=== PATIENT | female | born 1945 | race African-American/Black ===

== ENCOUNTER 2017-06-14 19:55 | Inpatient (IN) | payer MEDICARE, BC, MEDICAID ==
[~2017-06-14] VITALS: Ht 160 cm; Wt 61.7 kg
[2017-06-14] MEDS ORDERED: NON FORMULARY PATIENT HOME MED EA XX SCH (21:45)
[2017-06-14] MEDS ORDERED: SODIUM CHLORIDE 0.9% 1,000 ML IV SCH (21:45)
[2017-06-14] MEDS ORDERED: MORPHINE SULFATE 2 MG/ML CPJ (NOT FOR IM USE) IV PRN (21:45)
[2017-06-14] MEDS ORDERED: GUAIFENESIN/CODEINE 200-20MG/10ML UDC PO PRN (21:45)
[2017-06-14] MEDS ORDERED: TEMAZEPAM 15MG CAPSULE PO PRN (21:45)
[2017-06-14] MEDS ORDERED: ACETAMINOPHEN 650MG/20.3ML UDC PO PRN (21:45)
[2017-06-14] MEDS ORDERED: IPRATROPIUM/ALBUTEROL 0.5-3(2.5)MG/3ML NEB HHN PRN (21:45)
[2017-06-14] MEDS: IPRATROPIUM/ALBUTEROL 0.5-3(2.5)MG/3ML NEB HHN SCH (23:23)
[2017-06-15] MEDS ORDERED: METHYLPREDNISOLONE SOD SUCC 40 MG/ML VIAL IV SCH
[2017-06-15] MEDS: METHYLPREDNISOLONE SOD SUCC 40 MG/ML VIAL IV SCH ×2 (00:20→08:09)
[2017-06-15] MEDS: HYDROCODONE/ACETAMINOPHEN 10/325MG TABLET PO PRN ×5 (00:21→20:41)
[2017-06-15] MEDS ORDERED: RIVA10TA PO (00:49)
[2017-06-15] MEDS ORDERED: DULO30CA51 PO (00:50)
[2017-06-15] MEDS ORDERED: METF500T4 PO (00:53)
[2017-06-15] MEDS ORDERED: LORA1TAB PO (00:54)
[2017-06-15] MEDS ORDERED: ALPR-392 PO (00:55)
[2017-06-15] MEDS ORDERED: IPRA0.2S51 IH (00:56)
[2017-06-15] MEDS ORDERED: FLUT16SP15 BOTHNSTRLS (00:57)
[2017-06-15] MEDS ORDERED: LORA10TA7 PO (00:58)
[2017-06-15] MEDS ORDERED: METO1TAB26 PO ×2 (01:00→01:02)
[2017-06-15] MEDS ORDERED: MIRT15TA6 PO (01:03)
[2017-06-15] MEDS ORDERED: HYDR-519 PO (01:04)
[2017-06-15] MEDS ORDERED: ERGO400C PO (01:06)
[2017-06-15] MEDS: IPRATROPIUM/ALBUTEROL 0.5-3(2.5)MG/3ML NEB HHN SCH ×5 (03:55→20:56)
[2017-06-15 07:03] LABS: HEMATOCRIT 33.3 % (36.0-48.0); HEMOGLOBIN 10.8 g/dL (12.0-16.0); MEAN CORPUSCULAR HEMOGLOBIN 25.8 pg (28.0-32.0); MEAN CORPUSCULAR VOLUME 79.1 fL (81.0-99.0); PLATELET 240 x1000/uL (130-400); RED BLOOD CELL COUNT 4.21 mill/uL (4.2-5.4); RED CELL DISTRIBUTION WIDTH 15.2 % (11.6-14.6)
[2017-06-15 07:31] LABS: CARBON DIOXIDE 33 mEq/L (21-32); CHLORIDE 98 mEq/L (98-107)
[2017-06-15] MEDS: DOCUSATE SODIUM 100MG CAPSULE PO SCH ×2 (08:08→20:46)
[2017-06-15] MEDS: CITALOPRAM HYDROBROMIDE 10MG TABLET PO SCH (08:09)
[2017-06-15] MEDS ORDERED: DEXT 5%/0.9% NACL 1,000 ML IV SCH (09:00)
[2017-06-15] MEDS: BUDESONIDE 0.5MG/2ML NEB HHN SCH ×2 (09:05→20:54)
[2017-06-15] MEDS: ENOXAPARIN 40MG/0.4ML SYR SUBCUT SCH (09:43)
[2017-06-15 12:10] LABS: KETONES URINE NEGATIVE (NEGATIVE); LEUKOCYTE ESTERASE URINE NEGATIVE (NEGATIVE); NITRITE URINE NEGATIVE (NEGATIVE); OCCULT BLOOD URINE NEGATIVE (NEGATIVE); PH URINE 7.5 (4.5-8.0); PROTEIN URINE NEGATIVE (NEGATIVE)
[2017-06-15 12:11] LABS: CLARITY URINE CLEAR (CLEAR); COLOR URINE YELLOW (YELLOW)
[2017-06-15] MEDS ORDERED: DEXTROSE 50% WATER 50ML SYRINGE IV PRN (15:00)
[2017-06-15] MEDS: BLOOD SUGAR DIAGNOSTIC STRIP TEST SCH ×2 (16:34→21:06)
[2017-06-15] MEDS: INSULIN LISPRO 100 UNITS/ML SUBCUT SCH ×2 (16:35→21:00)
[2017-06-16] MEDS: IPRATROPIUM/ALBUTEROL 0.5-3(2.5)MG/3ML NEB HHN SCH ×6 (01:08→20:42)
[2017-06-16] MEDS: HYDROCODONE/ACETAMINOPHEN 10/325MG TABLET PO PRN ×4 (01:24→21:36)
[2017-06-16] MEDS: BLOOD SUGAR DIAGNOSTIC STRIP TEST SCH ×4 (06:14→20:53)
[2017-06-16] MEDS: INSULIN LISPRO 100 UNITS/ML SUBCUT SCH ×4 (07:01→21:02)
[2017-06-16] MEDS: DOCUSATE SODIUM 100MG CAPSULE PO SCH ×3 (08:34→21:01)
[2017-06-16] MEDS: ENOXAPARIN 40MG/0.4ML SYR SUBCUT SCH (08:35)
[2017-06-16] MEDS: CITALOPRAM HYDROBROMIDE 10MG TABLET PO SCH (08:35)
[2017-06-16] MEDS: PREDNISONE 20MG TABLET PO SCH (08:35)
[2017-06-16] MEDS: BUDESONIDE 0.5MG/2ML NEB HHN SCH ×2 (09:20→20:42)
[2017-06-16] MEDS: LIDOCAINE 5% PATCH TOP SCH (14:35)
[2017-06-17] MEDS: IPRATROPIUM/ALBUTEROL 0.5-3(2.5)MG/3ML NEB HHN SCH ×6 (00:45→20:26)
[2017-06-17] MEDS: HYDROCODONE/ACETAMINOPHEN 10/325MG TABLET PO PRN ×4 (04:28→20:21)
[2017-06-17] MEDS: BLOOD SUGAR DIAGNOSTIC STRIP TEST SCH ×4 (06:00→20:18)
[2017-06-17] MEDS: INSULIN LISPRO 100 UNITS/ML SUBCUT SCH ×4 (06:03→21:57)
[2017-06-17] MEDS: BUDESONIDE 0.5MG/2ML NEB HHN SCH ×2 (07:55→20:26)
[2017-06-17] MEDS: LIDOCAINE 5% PATCH TOP SCH (09:00)
[2017-06-17] MEDS: PREDNISONE 20MG TABLET PO SCH (09:34)
[2017-06-17] MEDS: DOCUSATE SODIUM 100MG CAPSULE PO SCH ×2 (09:34→20:20)
[2017-06-17] MEDS: ENOXAPARIN 40MG/0.4ML SYR SUBCUT SCH (09:36)
[2017-06-17] MEDS: CITALOPRAM HYDROBROMIDE 10MG TABLET PO SCH (09:36)
[2017-06-17] MEDS: METFORMIN HCL 500MG SR TABLET 24HR PO SCH (17:00)
[2017-06-18] MEDS: IPRATROPIUM/ALBUTEROL 0.5-3(2.5)MG/3ML NEB HHN SCH ×6 (00:14→21:21)
[2017-06-18] MEDS: LORAZEPAM 0.5MG TABLET PO PRN ×2 (00:28→20:47)
[2017-06-18] MEDS: BLOOD SUGAR DIAGNOSTIC STRIP TEST SCH ×4 (05:48→20:52)
[2017-06-18] MEDS: HYDROCODONE/ACETAMINOPHEN 10/325MG TABLET PO PRN ×3 (05:55→18:02)
[2017-06-18] MEDS: INSULIN LISPRO 100 UNITS/ML SUBCUT SCH ×4 (05:55→21:00)
[2017-06-18] MEDS: DOCUSATE SODIUM 100MG CAPSULE PO SCH ×2 (08:02→21:00)
[2017-06-18] MEDS: CITALOPRAM HYDROBROMIDE 10MG TABLET PO SCH (08:02)
[2017-06-18] MEDS: PREDNISONE 20MG TABLET PO SCH (08:03)
[2017-06-18] MEDS: ENOXAPARIN 40MG/0.4ML SYR SUBCUT SCH (08:04)
[2017-06-18] MEDS: LIDOCAINE 5% PATCH TOP SCH (08:04)
[2017-06-18] MEDS: BUDESONIDE 0.5MG/2ML NEB HHN SCH (09:13)
[2017-06-18] MEDS: METFORMIN HCL 500MG SR TABLET 24HR PO SCH ×2 (17:00→17:24)
[2017-06-19] MEDS: IPRATROPIUM/ALBUTEROL 0.5-3(2.5)MG/3ML NEB HHN SCH ×6 (01:04→20:36)
[2017-06-19] MEDS: HYDROCODONE/ACETAMINOPHEN 10/325MG TABLET PO PRN ×3 (05:47→20:22)
[2017-06-19] MEDS: BLOOD SUGAR DIAGNOSTIC STRIP TEST SCH ×4 (05:49→20:46)
[2017-06-19] MEDS: INSULIN LISPRO 100 UNITS/ML SUBCUT SCH ×4 (06:25→20:45)
[2017-06-19 07:32] LABS: HEMATOCRIT 29.3 % (36.0-48.0); HEMOGLOBIN 9.5 g/dL (12.0-16.0); MEAN CORPUSCULAR HEMOGLOBIN 25.9 pg (28.0-32.0); MEAN CORPUSCULAR VOLUME 79.5 fL (81.0-99.0); PLATELET 255 x1000/uL (130-400); RED BLOOD CELL COUNT 3.68 mill/uL (4.2-5.4); RED CELL DISTRIBUTION WIDTH 14.9 % (11.6-14.6)
[2017-06-19] MEDS: LIDOCAINE 5% PATCH TOP SCH (09:00)
[2017-06-19] MEDS: DOCUSATE SODIUM 100MG CAPSULE PO SCH ×2 (09:00→20:21)
[2017-06-19] MEDS: CITALOPRAM HYDROBROMIDE 10MG TABLET PO SCH (09:21)
[2017-06-19] MEDS: PREDNISONE 20MG TABLET PO SCH (09:21)
[2017-06-19] MEDS: ENOXAPARIN 40MG/0.4ML SYR SUBCUT SCH (09:21)
[2017-06-19] MEDS: METFORMIN HCL 500MG SR TABLET 24HR PO SCH (16:22)
[2017-06-19] MEDS: RESTASIS 0.05% OP SCH (17:00)
[2017-06-19] MEDS: EYE OP SCH (17:00)
[2017-06-19] MEDS: LORAZEPAM 0.5MG TABLET PO PRN (17:53)
[2017-06-19] MEDS: GUAIFENESIN 600MG ER TABLET PO SCH (20:21)
[2017-06-19] MEDS: BUDESONIDE 0.5MG/2ML NEB HHN SCH (20:36)
[2017-06-19] MEDS ORDERED: TEMAZEPAM 15MG CAPSULE PO PRN ×2 (20:45)
[2017-06-19] MEDS ORDERED: MORPHINE SULFATE 4 MG/ML CPJ (NOT FOR IM USE) IV PRN (21:45)
[2017-06-19] MEDS ORDERED: LORAZEPAM 0.5MG TABLET PO PRN (21:45)
[2017-06-19] MEDS ORDERED: GUAIFENESIN/CODEINE 200-20MG/10ML UDC PO PRN (21:45)
[2017-06-20] MEDS: IPRATROPIUM/ALBUTEROL 0.5-3(2.5)MG/3ML NEB HHN SCH ×6 (00:51→21:03)
[2017-06-20] MEDS: HYDROCODONE/ACETAMINOPHEN 10/325MG TABLET PO PRN ×4 (04:59→22:01)
[2017-06-20] MEDS: BLOOD SUGAR DIAGNOSTIC STRIP TEST SCH ×4 (06:28→21:58)
[2017-06-20] MEDS: INSULIN LISPRO 100 UNITS/ML SUBCUT SCH ×4 (07:02→21:00)
[2017-06-20] MEDS: BUDESONIDE 0.5MG/2ML NEB HHN SCH ×2 (07:33→21:03)
[2017-06-20] MEDS: CITALOPRAM HYDROBROMIDE 10MG TABLET PO SCH (09:47)
[2017-06-20] MEDS: DOCUSATE SODIUM 100MG CAPSULE PO SCH ×2 (09:47→22:01)
[2017-06-20] MEDS: PREDNISONE 20MG TABLET PO SCH (09:47)
[2017-06-20] MEDS: GUAIFENESIN 600MG ER TABLET PO SCH ×2 (09:48→22:01)
[2017-06-20] MEDS: EYE OP SCH ×2 (09:53→17:04)
[2017-06-20] MEDS: RESTASIS 0.05% OP SCH ×2 (09:53→17:04)
[2017-06-20] MEDS: ENOXAPARIN 40MG/0.4ML SYR SUBCUT SCH (09:55)
[2017-06-20] MEDS: LIDOCAINE 5% PATCH TOP SCH (09:55)
[2017-06-20] MEDS ORDERED: LIDOCAINE 5% PATCH TOP SCH (11:00)
[2017-06-20] MEDS: METFORMIN HCL 500MG SR TABLET 24HR PO SCH (17:00)
[2017-06-21] MEDS: IPRATROPIUM/ALBUTEROL 0.5-3(2.5)MG/3ML NEB HHN SCH ×6 (00:52→21:24)
[2017-06-21] MEDS: HYDROCODONE/ACETAMINOPHEN 10/325MG TABLET PO PRN ×4 (05:14→21:23)
[2017-06-21] MEDS: INSULIN LISPRO 100 UNITS/ML SUBCUT SCH ×4 (06:17→21:00)
[2017-06-21] MEDS: BLOOD SUGAR DIAGNOSTIC STRIP TEST SCH ×4 (06:17→21:02)
[2017-06-21] MEDS: BUDESONIDE 0.5MG/2ML NEB HHN SCH ×2 (08:26→21:25)
[2017-06-21] MEDS: CITALOPRAM HYDROBROMIDE 10MG TABLET PO SCH (09:06)
[2017-06-21] MEDS: DOCUSATE SODIUM 100MG CAPSULE PO SCH ×2 (09:06→20:59)
[2017-06-21] MEDS: GUAIFENESIN 600MG ER TABLET PO SCH ×2 (09:06→20:59)
[2017-06-21] MEDS: PREDNISONE 20MG TABLET PO SCH (09:06)
[2017-06-21] MEDS: ENOXAPARIN 40MG/0.4ML SYR SUBCUT SCH (09:07)
[2017-06-21] MEDS: LIDOCAINE 5% PATCH TOP SCH (09:07)
[2017-06-21] MEDS: EYE OP SCH ×2 (09:08→16:29)
[2017-06-21] MEDS: RESTASIS 0.05% OP SCH ×2 (09:08→16:29)
[2017-06-21] MEDS ORDERED: TEMAZEPAM 15MG CAPSULE PO PRN (12:30)
[2017-06-21] MEDS ORDERED: GUAIFENESIN/CODEINE 200-20MG/10ML UDC PO PRN (13:45)
[2017-06-21] MEDS ORDERED: MAGNESIUM/ALUMINUM HYDROXIDE/SIMETHICONE 30ML UDC PO PRN (16:15)
[2017-06-21] MEDS: LORAZEPAM 0.5MG TABLET PO PRN (22:33)
[2017-06-22] MEDS: IPRATROPIUM/ALBUTEROL 0.5-3(2.5)MG/3ML NEB HHN SCH ×6 (01:01→20:52)
[2017-06-22] MEDS: HYDROCODONE/ACETAMINOPHEN 10/325MG TABLET PO PRN ×4 (05:40→21:20)
[2017-06-22] MEDS: BLOOD SUGAR DIAGNOSTIC STRIP TEST SCH ×4 (06:20→21:11)
[2017-06-22] MEDS: INSULIN LISPRO 100 UNITS/ML SUBCUT SCH ×4 (07:04→21:00)
[2017-06-22] MEDS: BUDESONIDE 0.5MG/2ML NEB HHN SCH ×2 (07:17→08:15)
[2017-06-22] MEDS: RESTASIS 0.05% OP SCH ×2 (08:55→17:00)
[2017-06-22] MEDS: EYE OP SCH ×2 (08:55→17:00)
[2017-06-22] MEDS: ENOXAPARIN 40MG/0.4ML SYR SUBCUT SCH (08:56)
[2017-06-22] MEDS: DOCUSATE SODIUM 100MG CAPSULE PO SCH ×2 (08:56→21:00)
[2017-06-22] MEDS: GUAIFENESIN 600MG ER TABLET PO SCH ×2 (08:57→21:19)
[2017-06-22] MEDS: CITALOPRAM HYDROBROMIDE 10MG TABLET PO SCH (08:57)
[2017-06-22] MEDS: PREDNISONE 20MG TABLET PO SCH (08:57)
[2017-06-22] MEDS: JANUVIA 100MG TABLET PO SCH (08:57)
[2017-06-22] MEDS: LIDOCAINE 5% PATCH TOP SCH (08:59)
[2017-06-22] MEDS ORDERED: NON FORMULARY PATIENT HOME MED EA XX SCH (09:00)
[2017-06-22] MEDS ORDERED: LINAGLIPTIN 5MG TABLET PO SCH (09:00)
[2017-06-23] MEDS: IPRATROPIUM/ALBUTEROL 0.5-3(2.5)MG/3ML NEB HHN SCH ×4 (00:37→11:10)
[2017-06-23] MEDS: LORAZEPAM 0.5MG TABLET PO PRN (00:59)
[2017-06-23] MEDS: HYDROCODONE/ACETAMINOPHEN 10/325MG TABLET PO PRN ×2 (05:16→10:05)
[2017-06-23] MEDS: BLOOD SUGAR DIAGNOSTIC STRIP TEST SCH ×2 (06:18→11:20)
[2017-06-23] MEDS: INSULIN LISPRO 100 UNITS/ML SUBCUT SCH ×2 (07:02→13:00)
[2017-06-23] MEDS: DOCUSATE SODIUM 100MG CAPSULE PO SCH (09:00)
[2017-06-23] MEDS: CITALOPRAM HYDROBROMIDE 10MG TABLET PO SCH (09:51)
[2017-06-23] MEDS: PREDNISONE 20MG TABLET PO SCH (09:51)
[2017-06-23] MEDS: GUAIFENESIN 600MG ER TABLET PO SCH (09:51)
[2017-06-23] MEDS: JANUVIA 100MG TABLET PO SCH (09:52)
[2017-06-23] MEDS: LIDOCAINE 5% PATCH TOP SCH (09:52)
[2017-06-23] MEDS: ENOXAPARIN 40MG/0.4ML SYR SUBCUT SCH (09:52)
[2017-06-23] MEDS: EYE OP SCH (09:53)
[2017-06-23] MEDS: RESTASIS 0.05% OP SCH (09:53)
[2017-06-23 13:35] VITALS: BP 127/69
== END 2017-06-23 15:00 | disposition home health service (06) | DRG 190 ==
PROVIDERS: ADMIT Psychiatry & Neurology Neurology; ATTEND Specialist
DX: J44.1 Chronic obstructive pulmonary disease with (acute) exacerbation (principal); J96.20 Acute and chronic respiratory failure, unspecified whether with hypoxia or hypercapnia; Z99.81 Dependence on supplemental oxygen; M79.7 Fibromyalgia; K21.9 Gastro-esophageal reflux disease without esophagitis; I48.91 Unspecified atrial fibrillation; E11.9 Type 2 diabetes mellitus without complications; M54.5 Low back pain; K59.00 Constipation, unspecified; F41.9 Anxiety disorder, unspecified; L92.9 Granulomatous disorder of the skin and subcutaneous tissue, unspecified; F32.9 Major depressive disorder, single episode, unspecified; F06.8 Other specified mental disorders due to known physiological condition; F06.31 Mood disorder due to known physiological condition with depressive features; M81.0 Age-related osteoporosis without current pathological fracture; G89.29 Other chronic pain; I10 Essential (primary) hypertension; M19.90 Unspecified osteoarthritis, unspecified site; Z90.49 Acquired absence of other specified parts of digestive tract; Z90.710 Acquired absence of both cervix and uterus; Z79.899 Other long term (current) drug therapy; Z88.8 Allergy status to other drugs, medicaments and biological substances; Z79.84 Long term (current) use of oral hypoglycemic drugs
CPT/HCPCS: 36415; 80048; 81003; 82962; 85027; 92523; 93970; 94640; 97110; 97116; 97163; 97167; 97530; 97532; 97535; J1650; J1815; J2920; J7042; J7512; J7620; J7626

== ENCOUNTER → 2017-11-28 | Outpatient (CLI) | payer MEDICARE, MEDICAID | END | disposition home or self-care (01) | LOC: RAD 11:15 | PROVIDERS: ATTEND Specialist | DX: I10 Essential (primary) hypertension (principal); J44.1 Chronic obstructive pulmonary disease with (acute) exacerbation; R94.31 Abnormal electrocardiogram [ECG] [EKG] | CPT/HCPCS: 71045; 93005 ==